=== PATIENT | male | born 1940 | race Caucasian/White ===

== ENCOUNTER 2020-08-06 13:57 | Outpatient (NON) | payer MEDICARE, SELFPAY ==
[2020-08-06 14:39] LABS: Basophils Percent Auto 0.3 % (0.2-1.2); Eosinophils Absolute Auto 0.5 K/mm3 (0-0.3); Eosinophils Percent Auto 5.3 % (0-4.4); Hematocrit 42.6 % (42.0-52.0); Hemoglobin 13.9 g/dL (14.0-18.0); Immature Granulocyte Absolute 0.05 K/mm3 (0.00-0.031); Immature Granulocyte Percent A 0.5 % (0-0.5); Lymphocytes Absolute Auto 1.59 K/mm3 (0.9-3.2); Lymphocytes Percent Auto 16.9 % (18.3-44.2); Mean Corpuscular HGB Conc 32.6 g/dl (32-36); Mean Corpuscular Hemoglobin 27.1 pg (26-34); Mean Platelet Volume 10.2 fl (7.4-10.4); Monocytes Absolute Auto 0.7 K/mm3 (0.1-0.6); Monocytes Percent Auto 7.3 % (2.6-8.5); Neutrophils Absolute Auto 6.6 K/mm3 (1.3-6.7); Neutrophils Percent Auto 69.7 % (45.5-73.1); Platelet Count Result 214 k/mm3 (150-375); Red Blood Count 5.13 M/mm3 (4.6-6.20); Red Cell Distribution Width 15.3 % (11.5-14.5); White Blood Count 9.4 K/mm3 (4.5-10.0)
[2020-08-06 15:22] LABS: Anion Gap 9 mmol/L (8-16); Blood Urea Nitrogen 23 mg/dL (9-20); Calcium 8.8 mg/dL (8.4-10.2); Carbon Dioxide 27 mmol/L (22-30); Chloride 98 mmol/L (98-107); Estimated Glomerular Filt Rate 42; Glucose 179 mg/dL (75-110); Magnesium 1.8 mg/dL (1.6-2.3); Phosphorus 3.5 mg/dL (2.5-4.5); Potassium 4.2 mmol/L (3.4-5.0); Sodium 134 mmol/L (137-145); Total Protein Urine Random 40 mg/dL
[2020-08-06 15:26] LABS: Microalbumin Urine Random 164.4 mg/L (0-16.7)
[2020-08-06 15:29] LABS: Creatinine Urine 83.1 mg/dL; MALB Creatinine Ratio 197.8 mg/g (0-30); Ur Ttl Prot Creatinine Ratio 0.48 mg/mg (0-0.20)
[2020-08-06 16:31] LABS: Folic Acid > 20.0 ng/mL (2.76->20)
[2020-08-06 16:39] LABS: Hemoglobin A1C 6.9 % (<5.7)
[2020-08-09 22:07] LABS: Albumin 3.7 g/dL (3.8-4.8); Alpha 1 Globulin 0.3 g/dL (0.2-0.3); Alpha 2 Globulin 0.8 g/dL (0.5-0.9); Beta 1 Globulin 0.5 g/dL (0.4-0.6); Gamma Globulin 0.8 g/dL (0.8-1.7); Protein, Total 6.4 g/dL (6.1-8.1)
[2020-08-10 13:34] LABS: Kappa\\Lambda Light Chains 1.32 (0.26-1.65); Lambda Light Chain 36.5 mg/L (5.7-26.3)
== END 2020-08-06 13:58 ==
LOC: HOME HLTH 14:08
PROVIDERS: PCP Internal Medicine; Visit Provider Internal Medicine Nephrology
DX: N18.30 Chronic kidney disease, stage 3 unspecified (principal); I12.9 Hypertensive chronic kidney disease with stage 1 through stage 4 chronic kidney disease, or unspecified chronic kidney disease; E11.319 Type 2 diabetes mellitus with unspecified diabetic retinopathy without macular edema; I63.9 Cerebral infarction, unspecified
CPT/HCPCS: 80069; 82043; 82306; 82570; 82607; 82746; 83036; 83735; 83883; 83970; 84155; 84156; 84165; 84443; 85025; 86334

== ENCOUNTER 2020-08-31 14:53 | Outpatient (NON) | payer MEDICARE, SELFPAY ==
[2020-08-31 15:36] LABS: Albumin Level 4.2 g/dL (3.5-5.1); Anion Gap 9 mmol/L (8-16); Blood Urea Nitrogen 30 mg/dL (9-20); Calcium 9.1 mg/dL (8.4-10.2); Carbon Dioxide 28 mmol/L (22-30); Chloride 101 mmol/L (98-107); Estimated Glomerular Filt Rate 39; Glucose 136 mg/dL (75-110); Magnesium 1.9 mg/dL (1.6-2.3); Phosphorus 3.5 mg/dL (2.5-4.5); Potassium 4.7 mmol/L (3.4-5.0); Sodium 138 mmol/L (137-145)
[2020-08-31 16:09] LABS: Creatinine Urine 12.2 mg/dL; Total Protein Urine Random 18 mg/dL
[2020-08-31 16:13] LABS: MALB Creatinine Ratio 259.8 mg/g (0-30); Microalbumin Urine Random 31.7 mg/L (0-16.7)
== END 2020-08-31 14:54 ==
PROVIDERS: PCP Internal Medicine; Visit Provider Internal Medicine Nephrology
DX: E11.319 Type 2 diabetes mellitus with unspecified diabetic retinopathy without macular edema (principal); I63.9 Cerebral infarction, unspecified; I12.9 Hypertensive chronic kidney disease with stage 1 through stage 4 chronic kidney disease, or unspecified chronic kidney disease; N18.32 Chronic kidney disease, stage 3b
CPT/HCPCS: 80069; 81050; 82043; 83735; 84156

== ENCOUNTER 2020-11-15 12:05 | Outpatient (NON) | payer MEDICARE, SELFPAY ==
[2020-11-15 12:38] LABS: Basophils Percent Auto 0.3 % (0.2-1.2); Eosinophils Absolute Auto 0.5 K/mm3 (0-0.3); Eosinophils Percent Auto 5.1 % (0-4.4); Hematocrit 43.7 % (42.0-52.0); Immature Granulocyte Absolute 0.07 K/mm3 (0.00-0.031); Immature Granulocyte Percent A 0.8 % (0-0.5); Lymphocytes Absolute Auto 1.44 K/mm3 (0.9-3.2); Lymphocytes Percent Auto 15.5 % (18.3-44.2); Mean Corpuscular Hemoglobin 27.4 pg (26-34); Mean Corpuscular Volume 85.5 fl (80-100); Mean Platelet Volume 9.5 fl (7.4-10.4); Monocytes Absolute Auto 0.7 K/mm3 (0.1-0.6); Monocytes Percent Auto 7.1 % (2.6-8.5); Neutrophils Absolute Auto 6.6 K/mm3 (1.3-6.7); Neutrophils Percent Auto 71.2 % (45.5-73.1); Platelet Count Result 219 k/mm3 (150-375); Red Blood Count 5.11 M/mm3 (4.6-6.20); Red Cell Distribution Width 14.6 % (11.5-14.5); White Blood Count 9.3 K/mm3 (4.5-10.0)
[2020-11-15 12:44] LABS: Albumin Level 4.2 g/dL (3.5-5.1); Anion Gap 6 mmol/L (8-16); Blood Urea Nitrogen 26 mg/dL (9-20); Calcium 8.9 mg/dL (8.4-10.2); Carbon Dioxide 30 mmol/L (22-30); Chloride 100 mmol/L (98-107); Estimated Glomerular Filt Rate 39; Glucose 123 mg/dL (75-110); Magnesium 1.9 mg/dL (1.6-2.3); Phosphorus 4.1 mg/dL (2.5-4.5); Potassium 4.7 mmol/L (3.4-5.0); Sodium 136 mmol/L (137-145)
[2020-11-15 13:08] LABS: Vitamin D 25 Hydroxy 48.1 ng/mL
[2020-11-15 13:19] LABS: Creatinine Urine 104.2 mg/dL; Total Protein Urine Random 32 mg/dL; Ur Ttl Prot Creatinine Ratio 0.31 mg/mg (0-0.20)
[2020-11-15 13:25] LABS: MALB Creatinine Ratio 120.7 mg/g (0-30); Microalbumin Urine Random 125.8 mg/L (0-16.7)
== END 2020-11-15 12:06 | disposition home or self-care (01) ==
LOC: HOME HLTH 12:15
PROVIDERS: PCP Internal Medicine; Visit Provider Internal Medicine Nephrology
DX: I12.9 Hypertensive chronic kidney disease with stage 1 through stage 4 chronic kidney disease, or unspecified chronic kidney disease (principal); N18.32 Chronic kidney disease, stage 3b; E11.9 Type 2 diabetes mellitus without complications; I63.9 Cerebral infarction, unspecified
CPT/HCPCS: 80069; 82043; 82306; 82570; 83735; 84156; 85025

== ENCOUNTER 2021-06-12 11:17 | Emergency (ER) | payer MEDICARE, SELFPAY ==
[2021-06-12 11:25] VITALS: BP 133/58; PULSE 86; RESP 16; TEMP 36.6; O2SAT 100
--- NOTE | 2021-06-12 12:38 | ED.GENADULT ---
HPI - General Adult General Chief complaint: Urogenital-Male Stated complaint: blood in urine Time Seen by Provider: 06/12/21 12:32 Source: RN notes reviewed History of Present Illness HPI narrative: Patient presents emergency department from home for blood in his Gay catheter. Patient states he has had a Gay catheter secondary to difficulty voiding and is followed by Dr. Melendez states he noticed blood in his Gay last night he denies any fevers or chills abdominal pain nausea or vomiting with the blood in his Gay states he is on Plavix and aspirin which he has been taking patient states the Gay catheter was just changed this past Sunday denies any other symptoms at this time Related Data Allergies Allergy/AdvReac Type Severity Reaction Status Date / Time No Known Allergies Allergy Unknown Unverified 12/07/16 17:47 Review of Systems Review of Systems: Gen.: Denies fevers or chills ENT: Denies congestion Respiratory: Denies shortness of breath or cough CV: Denies chest pain or palpitations GI: Denies abdominal pain nausea, emesis or diarrhea see HPI Musculoskeletal: Denies back pain or muscle pain Neuro: Denies numbness, tingling, weakness or focal weakness Skin: Denies rash Except as documented, all other systems reviewed and negative [facility] Past Medical History Medical History (Updated 06/12/21 @ 13:46 by Magan Wells DO) Hypertension Social History Social History (Updated 06/12/21 @ 12:39 by Magan Wells DO) Smoking status: Never smoker Exam Narrative: APPEARANCE: No acute distress, nontoxic, resting in bed EYES: EOMI HEENT: Normocephalic, atraumatic, OMM RESPIRATORY: No respiratory distress Clear to auscultation bilaterally with no rhonchi wheezing or rales. CARDIOVASCULAR: Regular rate and rhythm without murmurs rubs or gallops. ABDOMINAL: Soft, nontender, nondistended, no rebound or guarding : Gay catheter present with reddish urine draining MUSCULOSKELETAl: Moves all extremities. No clubbing, cyanosis or edema. NEURO: Awake and alert. Following commands, speech normal, no focal deficits SKIN:: Warm, dry. No rashes lesions or abrasions PSYCHIATRIC: Normal affect/mood, Course Course Emergency Course: Since irrigation of Gay catheter by nursing staff patient's urine has remained clear Discussed with Dr. Gomez presentation and work-up. At this time request patient be started on Keflex agrees with plan for discharge to follow-up as an outpatient Discussed with patient results of workup and diagnosis. Discussed need for follow-up with primary care, proper use of medication, and reasons to return to the emergency department. Patient understands and agrees to current treatment plan Vital Signs Vital signs: Vital Signs Temperature 97.9 F 06/12/21 11:25 Pulse Rate 86 06/12/21 11:25 Respiratory Rate 16 06/12/21 11:25 Blood Pressure 133/58 L 06/12/21 11:25 Pulse Oximetry 100 06/12/21 11:25 Temperature 97.9 F 06/12/21 11:25 Pulse Rate 86 06/12/21 11:25 Respiratory Rate 16 06/12/21 11:25 Blood Pressure 133/58 L 06/12/21 11:25 Pulse Oximetry 100 06/12/21 11:25 Medical Decision Making Vital Signs Vital Signs: Vital Signs Temperature 97.9 F 06/12/21 11:25 Pulse Rate 86 06/12/21 11:25 Respiratory Rate 16 06/12/21 11:25 Blood Pressure 133/58 L 06/12/21 11:25 Pulse Oximetry 100 06/12/21 11:25 Temperature 97.9 F 06/12/21 11:25 Pulse Rate 86 06/12/21 11:25 Respiratory Rate 16 06/12/21 11:25 Blood Pressure 133/58 L 06/12/21 11:25 Pulse Oximetry 100 06/12/21 11:25 Lab Data Result diagrams: 06/12/21 12:53 06/12/21 12:53 Labs: Lab Results 06/12/21 06/12/21 06/12/21 Range/Units 12:47 12:53 12:53 WBC 8.9 (4.5-10.0) K/mm3 RBC 5.14 (4.6-6.20) M/mm3 Hgb 14.6 (14.0-18.0) g/dL Hct 44.7 (42.0-52.0) % MCV 87.0 (80-100) fl MCH 28.4 (26-34) pg MCH
[2021-06-12 13:00] VITALS: BP 135/62; PULSE 88; RESP 18; O2SAT 100
[2021-06-12 13:01] LABS: Basophils Percent Auto 0.4 % (0.2-1.2); Eosinophils Absolute Auto 0.3 K/mm3 (0-0.3); Eosinophils Percent Auto 3.6 % (0-4.4); Hematocrit 44.7 % (42.0-52.0); Hemoglobin 14.6 g/dL (14.0-18.0); Immature Granulocyte Absolute 0.05 K/mm3 (0.00-0.031); Immature Granulocyte Percent A 0.6 % (0-0.5); Lymphocytes Absolute Auto 1.46 K/mm3 (0.9-3.2); Lymphocytes Percent Auto 16.4 % (18.3-44.2); Mean Corpuscular HGB Conc 32.7 g/dl (32-36); Mean Corpuscular Hemoglobin 28.4 pg (26-34); Mean Platelet Volume 9.8 fl (7.4-10.4); Monocytes Absolute Auto 0.6 K/mm3 (0.1-0.6); Monocytes Percent Auto 7.2 % (2.6-8.5); Neutrophils Absolute Auto 6.4 K/mm3 (1.3-6.7); Neutrophils Percent Auto 71.8 % (45.5-73.1); Platelet Count Result 194 k/mm3 (150-375); Red Blood Count 5.14 M/mm3 (4.6-6.20); Red Cell Distribution Width 14.5 % (11.5-14.5); White Blood Count 8.9 K/mm3 (4.5-10.0)
[2021-06-12 13:05] LABS: Add Urine Microscopic? YES; Amorphous Sediment Urine Few; Appearance Urine Cloudy (Clear); Bacteria Urine 1+ /hpf; Bilirubin Urine Negative (Negative); Blood Urine 3+ (Negative); Color Urine Amber (Yellow); Glucose Urine UA Negative (Negative); Ketones Urine Negative (Negative); Leukocyte Esterase Ur 2+ LEU/UL (Negative); Mucus Urine Rare /lpf; Nitrate Urine Positive (Negative); Protein Urine 2+ mg/dL (Negative); RBC Urine >75 /hpf (0-2); Specific Grav Ur 1.013 (1.001-1.035); Urobilinogen Urine Negative mg/dL (<2.0); WBC Clumps Urine Present /HPF; WBC Urine >75 /hpf
[2021-06-12 13:11] LABS: Anion Gap 9 mmol/L (8-16); Blood Urea Nitrogen 28 mg/dL (9-20); Carbon Dioxide 27 mmol/L (22-30); Chloride 99 mmol/L (98-107); Estimated CRCL calculation 37 ml/min; Estimated Glomerular Filt Rate 39; Glucose 195 mg/dL (65-110); Potassium 5.1 mmol/L (3.4-5.0); Sodium 135 mmol/L (137-145)
[2021-06-12 13:15] LABS: INR 1.1; Prothrombin Time 13.7 Seconds (11.1-14.7)
[2021-06-12 13:16] LABS: Partial Thromboplastin Time 32.1 SECONDS (22.3-36.8)
[2021-06-12] MEDS: CEPHALEXIN 500 MG CAPSULE PO (14:06)
[2021-06-12 14:08] VITALS: BP 135/62; PULSE 87; RESP 18; O2SAT 100
== END 2021-06-12 14:09 | disposition home or self-care (01) ==
PROVIDERS: Emergency Provider Emergency Medicine; PCP Internal Medicine
DX: N39.0 Urinary tract infection, site not specified (principal); I10 Essential (primary) hypertension
CPT/HCPCS: 36415; 80048; 81001; 85025; 85610; 85730; 87086; 87088; 99283; A9270

== ENCOUNTER 2021-08-02 12:07 | Outpatient (NON) | payer MEDICARE, SELFPAY ==
[2021-08-02 12:36] LABS: Hemoglobin A1C 8.3 % (<5.7)
[2021-08-02 12:40] LABS: Albumin Level 4.1 g/dL (3.5-5.1); Anion Gap 12 mmol/L (8-16); Blood Urea Nitrogen 27 mg/dL (9-20); Calcium 8.9 mg/dL (8.4-10.2); Carbon Dioxide 25 mmol/L (22-30); Chloride 98 mmol/L (98-107); Estimated Glomerular Filt Rate 42; Glucose 192 mg/dL (65-110); Hematocrit 44.4 % (42.0-52.0); Hemoglobin 14.2 g/dL (14.0-18.0); Magnesium 1.9 mg/dL (1.6-2.3); Mean Corpuscular Hemoglobin 28.4 pg (26-34); Mean Corpuscular Volume 88.8 fl (80-100); Mean Platelet Volume 10.6 fl (7.4-10.4); Phosphorus 3.4 mg/dL (2.5-4.5); Platelet Count Result 172 k/mm3 (150-375); Potassium 4.7 mmol/L (3.4-5.0); Red Cell Distribution Width 14.6 % (11.5-14.5); Sodium 135 mmol/L (137-145); White Blood Count 8.3 K/mm3 (4.5-10.0)
[2021-08-02 13:12] LABS: Creatinine Urine 109.6 mg/dL; Total Protein Urine Random 73 mg/dL; Ur Ttl Prot Creatinine Ratio 0.67 mg/mg (0-0.20)
[2021-08-02 13:42] LABS: Vitamin D 25 Hydroxy 47.2 ng/mL
[2021-08-02 13:44] LABS: MALB Creatinine Ratio 310.6 mg/g (0-30); Microalbumin Urine Random 340.4 mg/L (0-16.7)
== END 2021-08-02 12:08 | disposition home or self-care (01) ==
PROVIDERS: Visit Provider Internal Medicine Nephrology
DX: N31.9 Neuromuscular dysfunction of bladder, unspecified (principal); E11.9 Type 2 diabetes mellitus without complications; Z46.6 Encounter for fitting and adjustment of urinary device; Z43.5 Encounter for attention to cystostomy; N18.30 Chronic kidney disease, stage 3 unspecified; I12.9 Hypertensive chronic kidney disease with stage 1 through stage 4 chronic kidney disease, or unspecified chronic kidney disease; E11.40 Type 2 diabetes mellitus with diabetic neuropathy, unspecified; R80.1 Persistent proteinuria, unspecified
CPT/HCPCS: 80069; 82043; 82306; 82570; 83036; 83735; 84156; 85027

== ENCOUNTER 2021-10-03 11:21 | Outpatient (NON) | payer MEDICARE, SELFPAY | END 2021-10-03 11:22 | disposition home or self-care (01) | PROVIDERS: PCP Internal Medicine; Referring Provider Urology; Visit Provider Urology | DX: N31.9 Neuromuscular dysfunction of bladder, unspecified (principal); E11.9 Type 2 diabetes mellitus without complications; N39.0 Urinary tract infection, site not specified | CPT/HCPCS: 87086; 87147; 87181; 87186 ==

== ENCOUNTER 2021-11-01 13:28 | Outpatient (NON) | payer MEDICARE, SELFPAY | END 2021-11-01 13:29 | disposition home or self-care (01) | LOC: HOME HLTH 13:33 | PROVIDERS: PCP Internal Medicine | DX: N39.0 Urinary tract infection, site not specified (principal); N31.9 Neuromuscular dysfunction of bladder, unspecified; E11.9 Type 2 diabetes mellitus without complications; Z43.5 Encounter for attention to cystostomy; Z46.6 Encounter for fitting and adjustment of urinary device | CPT/HCPCS: 87077; 87086; 87088; 87186 ==

== ENCOUNTER 2021-11-24 12:38 | Outpatient (NON) | payer MEDICARE, SELFPAY ==
[2021-11-24 13:07] LABS: Basophils Absolute Auto 0.1 K/mm3 (0.0-0.1); Basophils Percent Auto 0.5 % (0.2-1.2); Eosinophils Absolute Auto 0.3 K/mm3 (0-0.3); Eosinophils Percent Auto 2.6 % (0-4.4); Hematocrit 40.3 % (42.0-52.0); Hemoglobin 12.8 g/dL (14.0-18.0); Immature Granulocyte Absolute 0.06 K/mm3 (0.00-0.031); Immature Granulocyte Percent A 0.6 % (0-0.5); Lymphocytes Absolute Auto 1.27 K/mm3 (0.9-3.2); Lymphocytes Percent Auto 11.7 % (18.3-44.2); Mean Corpuscular HGB Conc 31.8 g/dl (32-36); Mean Corpuscular Hemoglobin 28.3 pg (26-34); Monocytes Absolute Auto 0.8 K/mm3 (0.1-0.6); Monocytes Percent Auto 7.1 % (2.6-8.5); Neutrophils Absolute Auto 8.5 K/mm3 (1.3-6.7); Neutrophils Percent Auto 77.5 % (45.5-73.1); Platelet Count Result 207 k/mm3 (150-375); Red Blood Count 4.53 M/mm3 (4.6-6.20); Red Cell Distribution Width 14.2 % (11.5-14.5); White Blood Count 10.9 K/mm3 (4.5-10.0)
[2021-11-24 13:12] LABS: Add Urine Microscopic? YES; Appearance Urine Cloudy (Clear); Bacteria Urine Trace /hpf; Bilirubin Urine Negative (Negative); Blood Urine 3+ (Negative); Color Urine Yellow (Yellow); Glucose Urine UA 2+ mg/dL (Negative); Ketones Urine Negative (Negative); Leukocyte Esterase Ur 1+ LEU/UL (Negative); Mucus Urine Rare /lpf; Nitrate Urine Negative (Negative); Protein Urine 1+ mg/dL (Negative); RBC Urine 21-50 /hpf (0-2); Specific Grav Ur 1.017 (1.001-1.035); Urobilinogen Urine Negative mg/dL (<2.0); WBC Urine 31-50 /hpf
[2021-11-24 13:19] LABS: Alanine Aminotransferase 15 U/L (4-50); Albumin Level 3.8 g/dL (3.5-5.1); Alkaline Phosphatase 120 U/L (38-126); Anion Gap 10 mmol/L (8-16); Aspartate Amino Transferase 20 U/L (17-59); Bilirubin,Total 0.5 mg/dL (0.2-1.3); Blood Urea Nitrogen 39 mg/dL (9-20); Carbon Dioxide 25 mmol/L (22-30); Chloride 100 mmol/L (98-107); Cholesterol 68 mg/dL (0-200); Estimated Glomerular Filt Rate 37; Glucose 292 mg/dL (65-110); HDL Direct 20 mg/dL; Potassium 4.7 mmol/L (3.4-5.0); Sodium 135 mmol/L (137-145); Triglycerides 120 mg/dL (<150)
[2021-11-24 13:26] LABS: Hemoglobin A1C 7.8 % (<5.7)
[2021-11-24 13:39] LABS: LDL Cholesterol Direct < 30 mg/dL
[2021-11-24 13:56] LABS: Thyroid Stimulating Hormone 0.594 uIU/mL (0.465-4.680)
[2021-11-24 14:19] LABS: Free T4 Free Thyroxine 1.48 ng/mL (0.78-2.19)
== END 2021-11-24 12:39 | disposition home or self-care (01) ==
PROVIDERS: PCP Internal Medicine; Visit Provider Internal Medicine
DX: N31.9 Neuromuscular dysfunction of bladder, unspecified (principal); E11.9 Type 2 diabetes mellitus without complications; I95.1 Orthostatic hypotension; N18.30 Chronic kidney disease, stage 3 unspecified; Z51.81 Encounter for therapeutic drug level monitoring; Z79.899 Other long term (current) drug therapy
CPT/HCPCS: 80053; 80061; 81001; 83036; 84439; 84443; 85025; 87086; 87147; 87181; 87186

== ENCOUNTER 2021-11-28 15:06 | Emergency (ER) | payer MEDICARE, SELFPAY ==
[2021-11-28 15:27] VITALS: BP 149/71; PULSE 80; RESP 18; TEMP 37.1; O2SAT 100
--- NOTE | 2021-11-28 17:24 | PC.NURSE ---
patient and family walked out and reported that they can come back another time.
== END 2021-11-29 01:20 | disposition left against medical advice (07) ==
LOC: ANHED 17:35
PROVIDERS: PCP Internal Medicine
DX: N39.0 Urinary tract infection, site not specified (principal)
CPT/HCPCS: 99199

== ENCOUNTER 2021-11-29 10:53 | Emergency (ER) | payer MEDICARE, SELFPAY ==
[2021-11-29 11:01] VITALS: BP 174/81; PULSE 92; RESP 18; O2SAT 99
[2021-11-29 11:05] VITALS: TEMP 37.2
--- NOTE | 2021-11-29 12:29 | ED.GENADULT ---
HPI - General Adult General Chief complaint: Urogenital-Male Stated complaint: blood in urine Time Seen by Provider: 11/29/21 11:58 Source: patient History of Present Illness HPI narrative: Patient presents for positive urine culture. Patient has a chronic suprapubic catheter for neurogenic bladder patient approximately 1 month ago some urinary urgency with urine coming out of his urethra he had urine studies for concerning for infection he has had 3 trials of Macrobid over the course of a month and he continued to have a positive urine culture. Over this time patient is also noted streaks of blood in his Gay bag. He is referred by his home health nurse for further evaluation ER. Patient reports he feels well reports she has a difficult time standing up and seems to have decreased p.o. intake patient reports he is eating 3 meals a day and has maintained his appetite. Denies any fevers or focal areas of pain abdominal pain or back pain. Related Data Allergies Allergy/AdvReac Type Severity Reaction Status Date / Time No Known Allergies Allergy Verified 11/28/21 15:31 Review of Systems Review of Systems: CONSTITUTIONAL: Denies fever, chills, or sweats. EYES: Denies visual changes, redness, or discharge. ENT: Denies rhinorrhea, congestion, sore throat, or otalgia. CARDIOVASCULAR: Denies chest pain, palpitations, or edema. RESPIRATORY: Denies cough or dyspnea. GASTROINTESTINAL: Denies abdominal pain, nausea, vomiting, or diarrhea. GENITOURINARY: Denies dysuria or hematuria. SKIN: Denies rash or itching. MUSCULOSKELETAL: Denies back pain, joint pain, or myalgia. NEUROLOGIC: Denies headache, numbness, dizziness, or weakness. PSYCHIATRIC: Denies anxiety or depression. All systems reviewed & are unremarkable except as noted in HPI and below PMFSH Past Medical History Medical History Hypertension Social History Social History Smoking status: Never smoker Exam Narrative: GENERAL: Well-appearing, well-nourished, and in no acute distress. HEAD: Normocephalic, atraumatic. EYES: PERRLA and EOMI. ENT: Nares clear, no rhinorrhea or epistaxis. Mucous membranes moist. NECK: Supple. No masses. No JVD CHEST: Clear to auscultation. No respiratory distress. No wheezes rales or rhonchi HEART: Regular rate and rhythm. No murmur heard. Normal peripheral pulses. ABDOMEN: Soft, nontender, nondistended, EXTREMITIES: Normal range of motion. No edema. SKIN: Warm, dry, no rash. NEURO: No focal deficits. Alert and oriented x3. PSYCH: Normal mood and affect. Course Reevaluation(s) Reevaluation #1: Patient resting comfortably results plan reviewed with patient. Patient is comfortable outpatient plan. Case also cussed with anyone with urology clinic was comfortable with outpatient plan. Date: 11/29/21 Time: 13:47 Vital Signs Vital signs: Vital Signs Pulse Rate 92 11/29/21 11:01 Respiratory Rate 18 11/29/21 11:01 Blood Pressure 174/81 H 11/29/21 11:01 Pulse Oximetry 99 11/29/21 11:01 Temperature 37.2 C 11/29/21 11:05 Pulse Rate 92 11/29/21 11:01 Respiratory Rate 18 11/29/21 11:01 Blood Pressure 174/81 H 11/29/21 11:01 Pulse Oximetry 99 11/29/21 11:01 Medical Decision Making MDM Narrative Medical decision making narrative: H&P as above, vss, pt looks clinically well, exam with nonacute abdomen, labs with dirty urine otherwise clinically unremarkable prior cultures reviewed culture grows is likely colonization of chronic indwelling Gay catheter, however given subjective reports of weakness and decreased p.o. intake will treat with antibiotic. Additional labs/img considered, symptomatic relief available as needed, on reevaluation pt continues to looks clinically well. Suspect UTI, dns severe sepsis consider dehydration, significant hemorrhage. plan to tx/monitor as op w/ pcm f/u findings/plan d
[2021-11-29 12:41] LABS: Basophils Percent Auto 0.5 % (0.2-1.2); Eosinophils Absolute Auto 0.3 K/mm3 (0-0.3); Eosinophils Percent Auto 4.1 % (0-4.4); Hematocrit 40.7 % (42.0-52.0); Hemoglobin 13.1 g/dL (14.0-18.0); Immature Granulocyte Absolute 0.05 K/mm3 (0.00-0.031); Immature Granulocyte Percent A 0.6 % (0-0.5); Lymphocytes Absolute Auto 1.15 K/mm3 (0.9-3.2); Mean Corpuscular HGB Conc 32.2 g/dl (32-36); Mean Corpuscular Hemoglobin 28.5 pg (26-34); Mean Corpuscular Volume 88.7 fl (80-100); Mean Platelet Volume 10.1 fl (7.4-10.4); Monocytes Absolute Auto 0.6 K/mm3 (0.1-0.6); Monocytes Percent Auto 7.3 % (2.6-8.5); Neutrophils Absolute Auto 6.1 K/mm3 (1.3-6.7); Neutrophils Percent Auto 73.5 % (45.5-73.1); Platelet Count Result 195 k/mm3 (150-375); Red Blood Count 4.59 M/mm3 (4.6-6.20); Red Cell Distribution Width 14.1 % (11.5-14.5); White Blood Count 8.2 K/mm3 (4.5-10.0)
[2021-11-29 12:51] LABS: Alanine Aminotransferase 17 U/L (4-50); Alkaline Phosphatase 115 U/L (38-126); Anion Gap 6 mmol/L (8-16); Aspartate Amino Transferase 25 U/L (17-59); Bilirubin,Total 0.3 mg/dL (0.2-1.3); Blood Urea Nitrogen 31 mg/dL (9-20); Calcium 8.4 mg/dL (8.4-10.2); Carbon Dioxide 26 mmol/L (22-30); Chloride 102 mmol/L (98-107); Estimated CRCL calculation 36 ml/min; Estimated Glomerular Filt Rate 39; Glucose 219 mg/dL (65-110); Sodium 134 mmol/L (137-145)
[2021-11-29 12:52] LABS: Lactic Acid Reflex 1.6 mmol/L (0.7-2.0)
[2021-11-29] MEDS: SODIUM CHLORIDE 0.9% IV 1,000 ML 999 ML IV CONT (13:03)
[2021-11-29 13:20] LABS: Appearance Urine Cloudy (Clear); Bilirubin Urine Negative (Negative); Blood Urine 3+ (Negative); Color Urine Yellow (Yellow); Glucose Urine UA Negative (Negative); Ketones Urine Negative (Negative); Leukocyte Esterase Ur 2+ LEU/UL (Negative); Nitrate Urine Negative (Negative); Protein Urine Trace mg/dL (Negative); Specific Grav Ur 1.015 (1.001-1.035); Urobilinogen Urine 0.2 mg/dL (<2.0)
[2021-11-29 13:24] LABS: Bacteria Urine Trace /hpf; Mucus Urine Rare /lpf; RBC Urine 51-75 /hpf (0-2); WBC Clumps Urine Present /HPF; WBC Urine 51-75 /hpf
[2021-11-29 13:28] LABS: Add Urine Microscopic? YES
--- NOTE | 2021-11-29 14:19 | PC.NURSE ---
PT SUPRAPUBIC WAS NO LONGER INTACT. PT AND STATED IT WAS DUE TO BE CHANGED THIS WEEK. NEW CATH INSERTED WITHOUT DIFFICULTY. CATH DRAINING VIA GRAVITY WITH CLEAR YELLOW URINE,
== END 2021-11-29 15:07 | disposition home or self-care (01) ==
PROVIDERS: Emergency Provider Emergency Medicine; PCP Internal Medicine
DX: R82.79 Other abnormal findings on microbiological examination of urine (principal); I10 Essential (primary) hypertension
CPT/HCPCS: 36415; 51705; 80053; 81001; 83605; 85025; 87086; 87147; 87181; 87186; 96365; 96366; 99284; J1956; J7030

== ENCOUNTER 2021-12-20 11:32 | Outpatient (NON) | payer MEDICARE, SELFPAY ==
[2021-12-20 11:51] LABS: Hematocrit 41.8 % (42.0-52.0); Hemoglobin 13.2 g/dL (14.0-18.0); Mean Corpuscular HGB Conc 31.6 g/dl (32-36); Mean Corpuscular Hemoglobin 28.4 pg (26-34); Mean Corpuscular Volume 90.1 fl (80-100); Mean Platelet Volume 10.7 fl (7.4-10.4); Platelet Count Result 187 k/mm3 (150-375); Red Blood Count 4.64 M/mm3 (4.6-6.20); Red Cell Distribution Width 14.6 % (11.5-14.5); White Blood Count 8.3 K/mm3 (4.5-10.0)
[2021-12-20 11:59] LABS: Albumin Level 3.9 g/dL (3.5-5.1); Anion Gap 7 mmol/L (8-16); Blood Urea Nitrogen 28 mg/dL (9-20); Calcium 8.4 mg/dL (8.4-10.2); Carbon Dioxide 30 mmol/L (22-30); Chloride 102 mmol/L (98-107); Estimated Glomerular Filt Rate 42; Glucose 123 mg/dL (65-110); Magnesium 2.1 mg/dL (1.6-2.3); Phosphorus 4.3 mg/dL (2.5-4.5); Potassium 4.7 mmol/L (3.4-5.0); Sodium 139 mmol/L (137-145)
[2021-12-20 12:10] LABS: Parathyroid Intact 141.1 pg/mL (7.5-53.5)
[2021-12-20 12:30] LABS: Hemoglobin A1C 7.2 % (<5.7)
[2021-12-20 12:38] LABS: Creatinine Urine 86.3 mg/dL
[2021-12-20 12:43] LABS: MALB Creatinine Ratio 132.6 mg/g (0-30); Microalbumin Urine Random 114.4 mg/L (0-16.7)
[2021-12-20 12:54] LABS: Total Protein Urine Random 30 mg/dL; Ur Ttl Prot Creatinine Ratio 0.35 mg/mg (0-0.20)
== END 2021-12-20 11:33 | disposition home or self-care (01) ==
LOC: HOME HLTH 11:36
PROVIDERS: PCP Internal Medicine; Visit Provider Internal Medicine Nephrology
DX: I12.9 Hypertensive chronic kidney disease with stage 1 through stage 4 chronic kidney disease, or unspecified chronic kidney disease (principal); N18.30 Chronic kidney disease, stage 3 unspecified; R80.1 Persistent proteinuria, unspecified; N31.9 Neuromuscular dysfunction of bladder, unspecified; E11.9 Type 2 diabetes mellitus without complications
CPT/HCPCS: 80069; 82043; 82570; 82607; 83036; 83735; 83970; 84156; 85027

== ENCOUNTER 2022-05-01 14:02 | Outpatient (NON) | payer MEDICARE, SELFPAY ==
[2022-05-01 20:08] LABS: Prostate Specific Antigen 2.5 ng/mL (< OR = 4.0)
== END 2022-05-01 14:03 | disposition home or self-care (01) ==
PROVIDERS: PCP Internal Medicine; Visit Provider Internal Medicine
DX: N42.9 Disorder of prostate, unspecified (principal); Z12.5 Encounter for screening for malignant neoplasm of prostate; N31.9 Neuromuscular dysfunction of bladder, unspecified; E11.9 Type 2 diabetes mellitus without complications; Z43.5 Encounter for attention to cystostomy; Z46.6 Encounter for fitting and adjustment of urinary device
CPT/HCPCS: 84153; G0103

== ENCOUNTER 2022-06-29 14:14 | Outpatient (NON) | payer MEDICARE, SELFPAY ==
[2022-06-29 19:19] LABS: Hematocrit 42.1 % (42.0-52.0); Hemoglobin 13.2 g/dL (14.0-18.0); Mean Corpuscular HGB Conc 31.4 g/dl (32-36); Mean Corpuscular Hemoglobin 27.7 pg (26-34); Mean Corpuscular Volume 88.3 fl (80-100); Mean Platelet Volume 10.8 fl (7.4-10.4); Platelet Count Result 185 k/mm3 (150-375); Red Blood Count 4.77 M/mm3 (4.6-6.20); Red Cell Distribution Width 14.9 % (11.5-14.5); White Blood Count 8.9 K/mm3 (4.5-10.0)
[2022-06-29 19:39] LABS: Albumin Level 4.2 g/dL (3.5-5.1); Anion Gap 10 mmol/L (8-16); Blood Urea Nitrogen 33 mg/dL (9-20); Calcium 8.4 mg/dL (8.4-10.2); Carbon Dioxide 27 mmol/L (22-30); Chloride 101 mmol/L (98-107); Cholesterol 62 mg/dL (0-200); Estimated Glomerular Filt Rate 39; Glucose 185 mg/dL (65-110); HDL Direct 19 mg/dL; Magnesium 2.3 mg/dL (1.6-2.3); Phosphorus 3.9 mg/dL (2.5-4.5); Potassium 4.6 mmol/L (3.4-5.0); Sodium 138 mmol/L (137-145); Triglycerides 206 mg/dL (<150)
[2022-06-29 19:45] LABS: Vitamin D 25 Hydroxy 44.2 ng/mL
[2022-06-29 19:52] LABS: Creatinine Urine 67.5 mg/dL; Total Protein Urine Random 69 mg/dL; Ur Ttl Prot Creatinine Ratio 1.02 mg/mg (0-0.20)
[2022-06-29 20:11] LABS: MALB Creatinine Ratio 444.6 mg/g (0-30); Microalbumin Urine Random 300.1 mg/L (0-16.7); Parathyroid Intact 141.7 pg/mL (7.5-53.5)
[2022-06-29 21:25] LABS: LDL Cholesterol Direct < 30 mg/dL
== END 2022-06-29 14:15 | disposition home or self-care (01) ==
PROVIDERS: PCP Internal Medicine; Referring Provider Urology; Visit Provider Internal Medicine Nephrology
DX: N31.9 Neuromuscular dysfunction of bladder, unspecified (principal); Z43.5 Encounter for attention to cystostomy; Z46.6 Encounter for fitting and adjustment of urinary device; N18.30 Chronic kidney disease, stage 3 unspecified; R80.1 Persistent proteinuria, unspecified; E11.40 Type 2 diabetes mellitus with diabetic neuropathy, unspecified; I10 Essential (primary) hypertension; E78.00 Pure hypercholesterolemia, unspecified
CPT/HCPCS: 80061; 80069; 82043; 82306; 82570; 83036; 83735; 83970; 84156; 85027

== ENCOUNTER 2022-08-04 15:21 | Outpatient (NON) | payer MEDICARE, SELFPAY ==
[2022-08-04 15:45] LABS: Mucus Urine Rare /lpf; WBC Urine 0-3 /hpf
[2022-08-04 16:02] LABS: Add Urine Microscopic? YES; Appearance Urine Clear (Clear); Bilirubin Urine Negative (Negative); Blood Urine Negative (Negative); Color Urine Yellow (Yellow); Glucose Urine UA Negative (Negative); Ketones Urine Negative (Negative); Leukocyte Esterase Ur Negative LEU/UL (Negative); Nitrate Urine Negative (Negative); Protein Urine Trace mg/dL (Negative); Urobilinogen Urine 0.2 mg/dL (<2.0)
== END 2022-08-04 15:22 | disposition home or self-care (01) ==
LOC: HOME HLTH 15:23
PROVIDERS: PCP Internal Medicine; Visit Provider Urology
DX: N31.9 Neuromuscular dysfunction of bladder, unspecified (principal); E11.9 Type 2 diabetes mellitus without complications; Z46.6 Encounter for fitting and adjustment of urinary device; Z43.5 Encounter for attention to cystostomy
CPT/HCPCS: 81001

== ENCOUNTER 2022-09-28 11:49 | Outpatient (NON) | payer MEDICARE, SELFPAY ==
[2022-09-28 12:38] LABS: Hematocrit 36.1 % (42.0-52.0); Hemoglobin 11.1 g/dL (14.0-18.0); Mean Corpuscular HGB Conc 30.7 g/dl (32-36); Mean Corpuscular Hemoglobin 26.6 pg (26-34); Mean Corpuscular Volume 86.4 fl (80-100); Mean Platelet Volume 10.2 fl (7.4-10.4); Platelet Count Result 313 k/mm3 (150-375); Red Blood Count 4.18 M/mm3 (4.6-6.20); Red Cell Distribution Width 13.5 % (11.5-14.5); White Blood Count 15.8 K/mm3 (4.5-10.0)
[2022-09-28 12:49] LABS: Creatinine Urine 179.6 mg/dL; Total Protein Urine Random 55 mg/dL; Ur Ttl Prot Creatinine Ratio 0.31 mg/mg (0-0.20)
[2022-09-28 12:50] LABS: Cholesterol 65 mg/dL (0-200); HDL Direct 14 mg/dL; Magnesium 2.1 mg/dL (1.6-2.3); Triglycerides 131 mg/dL (<150)
[2022-09-28 12:57] LABS: Hemoglobin A1C 8.7 % (<5.7)
[2022-09-28 13:02] LABS: LDL Cholesterol Direct < 30 mg/dL
[2022-09-28 13:03] LABS: Parathyroid Intact 99.1 pg/mL (7.5-53.5)
[2022-09-28 13:12] LABS: MALB Creatinine Ratio 123.3 mg/g (0-30); Microalbumin Urine Random 221.4 mg/L (0-16.7)
[2022-09-28 13:18] LABS: Vitamin D 25 Hydroxy 43.5 ng/mL
== END 2022-09-28 11:50 | disposition home or self-care (01) ==
LOC: HOME HLTH 11:56
PROVIDERS: PCP Internal Medicine; Visit Provider Internal Medicine Nephrology
DX: N18.30 Chronic kidney disease, stage 3 unspecified (principal); R80.1 Persistent proteinuria, unspecified; E11.40 Type 2 diabetes mellitus with diabetic neuropathy, unspecified; E11.22 Type 2 diabetes mellitus with diabetic chronic kidney disease; E78.00 Pure hypercholesterolemia, unspecified; I10 Essential (primary) hypertension; E21.1 Secondary hyperparathyroidism, not elsewhere classified
CPT/HCPCS: 80061; 82043; 82306; 82570; 83036; 83735; 83970; 84156; 85027